=== PATIENT | male | born 1980 | race Caucasian/White ===

== ENCOUNTER 2017-11-07 14:05 | Emergency (ER) | payer MEDICAID, OTHER ==
[~2017-11-07] VITALS: Ht 182.9 cm; Wt 117.9 kg
[2017-11-07] MEDS ORDERED: SODIUM CHLORIDE 0.9% 1,000 ML IV ONE ×3 (14:23→16:27)
[2017-11-07 15:01] LABS: Eosinophils # (auto) 0.1 uL; Eosinophils % (auto) 0.7 % (0.0-7.0); Mean Corpuscular Hemoglobin 31.5 pg (28.0-32.0); Red Blood Cells 5.87 10^6/uL (4.5-5.90)
[2017-11-07 15:03] LABS: Basophils # (auto) 0 uL; Basophils % (auto) 0.6 % (0.0-2.0); Hematocrit 53.7 % (41.0-53.0); Hemoglobin 18.5 g/dL (13.5-17.5); Lymphocytes # (auto) 1.7 uL; Lymphocytes % (auto) 19.8 % (10.0-50.0); Mean Corpuscular Hgb Conc. 34.4 g/dL (32.0-36.0); Mean Corpuscular Volume 91.5 fL (80.0-100.0); Monocytes # (auto) 0.4 uL; Monocytes % (auto) 4.7 % (0.0-12.0); Neutrophils # (auto) 6.2 uL; Neutrophils % (auto) 74.2 % (37.0-80.0); Nucleated Red Blood Cells % 0.8 %; Platelet Count (auto) 301 10^3/uL (140-450); Red Cell Distribution Width 12.5 % (11.8-14.3); White Blood Cell 8.4 10^3/uL (4.4-10.8)
[2017-11-07 15:13] LABS: Alanine Aminotransferase 45 U/L (16-61); Albumin 3.7 g/dL (3.4-5.0); Alkaline Phosphatase 91 U/L (45-117); Anion Gap 10 (5-15); Aspartate Aminotransferase 19 U/L (15-37); BUN/Creatinine Ratio 10.9; Bilirubin, Total 0.7 mg/dL (0.2-1.0); Blood Urea Nitrogen 13 mg/dL (7-18); Calcium 8.6 mg/dL (8.5-10.1); Carbon Dioxide 23 mmol/L (21-32); Chloride 105 mmol/L (98-107); GFR African American 89 mL/min; GFR Non-African American 74 mL/min; Glucose 154 mg/dL (74-106); Potassium 4.1 mmol/L (3.5-5.1); Sodium 138 mmol/L (136-145); Total Protein 7.5 g/dL (6.4-8.2)
[2017-11-07 16:40] VITALS: BP 135/82
== END 2017-11-07 17:03 | disposition home or self-care (01) ==
LOC: ER 14:05 → EDBD 14:05 → ER 17:02
DX: E86.0 Dehydration (principal); I10 Essential (primary) hypertension; R53.83 Other fatigue
CPT/HCPCS: 36415; 70450; 71045; 80053; 83036; 84484; 85025; 96360; 96361; 99285; J7030; 93005

== ENCOUNTER 2017-11-14 18:17 | Emergency (ER) | payer MEDICAID ==
[~2017-11-14] VITALS: Ht 182.9 cm; Wt 114.4 kg
[2017-11-14] MEDS ORDERED: chlordiazePOXIDE HCL 25 MG CAP PO ONE ×2 (19:15)
[2017-11-14 19:20] VITALS: BP 151/101
== END 2017-11-14 19:28 | disposition home or self-care (01) ==
LOC: ER 18:17
DX: K02.9 Dental caries, unspecified (principal); I10 Essential (primary) hypertension; F12.10 Cannabis abuse, uncomplicated